=== PATIENT | male | born 1980 | race Caucasian/White ===

== ENCOUNTER 2021-02-21 08:40 | Outpatient (REF) | payer OTHER, SELFPAY | END 2021-02-21 08:41 | disposition home or self-care (01) | LOC: HO.HMGCLDS 08:40 | PROVIDERS: Visit Provider Internal Medicine | DX: Z20.822 Contact with and (suspected) exposure to COVID-19 (principal) | CPT/HCPCS: C9803; U0003; U0005 ==

== ENCOUNTER 2023-08-28 11:23 | Outpatient (AMB) | payer OTHER, SELFPAY ==
[2023-08-28 11:55] VITALS: BP 118/76; PULSE 84; O2SAT 97; BMI 27.5
--- NOTE | 2023-08-28 11:55 | MHC.PC.OV ---
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 Allergies Penicillins Allergy (Severe, Verified 08/28/23 11:57) hives and swelling Medication List - Last Reconciled 08/28/23 by Allie Wilson MD baclofen 10 mg PO BEDTIME escitalopram oxalate 10 mg PO DAILY Tobacco use date assessed: 08/28/23 Dental Screening Dental Screen Date: 08/28/23 Did you have a dental visit in the last 12 months?: Yes Did you have a dental problem in the last 6 months where you did not have access to dental care?: No Was dental information given to patient?: Patient has dentist HPI CONTACT CENTER ANALYST/Requesting physical HPI Details Pt presents for CONTACT CENTER ANALYST PE. PFSH Surgical History Hx of adenoidectomy Family History Father Hypertension Family history of glioblastoma Mother COPD (chronic obstructive pulmonary disease) Social History Household Members Other:: , 4 children (7-16) Housing: House Patient Tobacco Use Status: Former Tobacco user (8 years ago) e-Cigarette/Vaping Use: Never Used service: No Current occupational status: employed Cognitive needs: No Hearing needs: No Vision needs: No Questionnaire PHQ-9 Over the last 2 weeks, how often have you been bothered by any of the following problems? 1. Little interest or pleasure in doing things: not at all 2. Feeling down, depressed, or hopeless: not at all 3. Trouble falling or staying asleep, or sleeping too much: not at all 4. Feeling tired or having little energy: not at all 5. Poor appetite or overeating: not at all 6. Feeling bad about yourself - or that you are a failure or have let yourself or your family down: not at all 7. Trouble concentrating on things, such as reading the newspaper or watching television: not at all 8. Moving or speaking so slowly that other people could have noticed. Or the opposite - being so fidgety or restless that you have been moving around a lot more than usual: not at all 9. Thoughts that you would be better off or of hurting yourself in some way: not at all Total score: 0 Depression Screening Interpretation: Negative Depression Screening Done: Yes 52042 - PHQ-9 Billing: Yes Source: Developed by Drs. Armaan Gramajo, Keena Chaudhry, Dominik Marte and colleagues, with an educational jd from [employer]. Thrive Questionnaire Date Thrive assessed: 08/28/23 I am a: Patient What is your living situation today?: I have a steady place to live Within the past 12 months, did the food you bought not last and you didn't have the money to get more?: Never true Within the past 12 months, did you worry whether your food would run out before you got money to buy more?: Never true Do you have trouble paying for medicines?: No Do you have trouble getting transportation to medical appointments?: No Do you have trouble paying your heating and electricity bill?: No Do you have trouble taking care of your child, family member or friend?: No Do you have trouble with day-to-day activities such as bathing, preparing meals, shopping, managing finances, etc.?: No Are you currently unemployed and looking for a job?: No Are you interested in more education?: No Please select the resources that you would like help with: None Currently or been in a relationship where the following occur: No concerns reported THRIVE Score: 0 AUDIT C Alcohol Use Questionnaire (AUDIT-C) 1. How often do you have a drink containing alcohol?: Monthly or less 2. How many drinks containing alcohol do you have on a typical day when you are drinking?: 1 or 2 3. How often do you have six or more drinks on one occasion?: Never Total Score: 1 THERESE-7 AMB Questionnaire THERESE-7 Date THERESE - 7 assessed: 08/28/23 Feeling nervous, anxious, or on edge: 0 = Not at all Not being able to stop or control worryin = Not at all Worrying too much about different things: 0 = Not at all Trouble relaxin = Not at all Being so restless that it is hard to sit still: 0 = Not at all Becoming easily annoyed or irritable: 0 = Not at all Feeling afraid as if something awful might happen: 0 = Not at all Total THERESE-7 score (0-4 normal; 5-9 mild; 10-14 moderate; 15-21 severe): 0 Source: Developed by Drs. Armaan Gramajo, Keena Chaudhry, Dominik Marte and colleagues, with an educational jd from [employer]. THERESE-7 Assessment Billing THERESE-7 Assessment Tool: THERESE-7 Assessment 22056 Review of Systems Const All systems reviewed & are unremarkable except as noted in HPI and below Reports no additional complaints Eyes Reports no additional complaints ENT Reports no additional complaints Card Reports no additional complaints Resp Reports no additional complaints GI Reports no additional complaints Reports no additional complaints Physical exam (Primary Care) Vital Signs: Last Vital Signs Pulse 84 08/28/23 11:55 BP 118/76 08/28/23 11:55 Pulse Ox 97 08/28/23 11:55 Oxygen Delivery Method Room Air 08/28/23 11:55 BMI result Body Mass Index 27.5 Tobacco/Smoking Status: Tobacco use Status Tobacco use date assessed 08/28/23 08/28/23 12:07 Patient Tobacco Use Status Former Tobacco user (8 years 08/28/23 12:37 ago) e-Cigarette/Vaping Use Never Used 08/28/23 12:37 PHQ-9: PHQ-9 Score PHQ-9: Total score 0 08/28/23 12:48 Depression Screening Interpretation: Negative Thrive Assessment: Date of Thrive Assessment Date Thrive assessed 08/28/23 08/28/23 12:48 Currently or been in a relationship where the following occur: No concerns reported Const General: no acute distress HENMT Head: Yes normal to inspection Ears: hearing grossly normal bilaterally Mouth: Normal oral and palatal mucosa present Eyes General: appearance normal, both eyes and all related structures Neck Neck: Yes no lymphadenopathy and Yes supple Resp Effort & Inspection: normal respiratory effort Auscultation: clear to auscultation bilaterally Cardio Rhythm: regular rhythm Heart sounds: S1 normal heart sound present and S2 normal heart sound present GI Inspection: Yes normal to inspection Palpation (GI): Soft to palpation Percussion: Yes normal to percussion Auscultation: normal bowel sounds Extrem Other: Right lower calf region superficial varicose veins, no ulceration or dystrophic skin changes Assessment and Plan Assessment & Plan (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 Panel Fast Today Z00.00 - Encounter for general adult medical examination without abnormal findings Lipid Panel Today Z00.00 - Encounter for general adult medical examination without abnormal findings Complete Blood Count Auto Diff Today Z00.00 - Encounter for general adult medical examination without abnormal findings UA w Microscopic Today Z00.00 - Encounter for general adult medical examination without abnormal findings Referrals Vascular Surgery Referral I83.90 - Asymptomatic varicose veins of unspecified lower extremity Coding Level of Care Code New Pt Prev Care 40-64y(83910) Diagnoses Jaw anomaly M26.9 Annual physical exam Z00.00 Additional Codes THERESE-7 Assessment Billing - THERESE-7 Assessment Tool: THERESE-7 Assessment 32450 ([id number])
== END 2023-08-28 13:39 | disposition home or self-care (01) ==
PROVIDERS: PCP Internal Medicine; Visit Provider Internal Medicine
DX: Z00.00 Encounter for general adult medical examination without abnormal findings (principal); M26.9 Dentofacial anomaly, unspecified
CPT/HCPCS: 99386